=== PATIENT | female | born 1970 | race Caucasian/White ===

== ENCOUNTER → 2021-04-11 16:08 | Outpatient (BNVA) | payer OTHER, SELFPAY | PROVIDERS: Family Provider Physician Assistant Medical; PCP Nurse Practitioner Family; Visit Provider Emergency Medicine | DX: Z20.822 Contact with and (suspected) exposure to COVID-19 (principal) | CPT/HCPCS: 87635 ==

== ENCOUNTER 2021-04-21 20:08 | Emergency (ER) | payer BC, SELFPAY ==
--- NOTE | 2021-04-21 20:27 | XRR_ITS ---
PROCEDURE INFORMATION: Exam: XR Chest Exam date and time: 04/21/2021 8:27 PM Age: 51 years old Clinical indication: Cough and fever and shortness of breath; Additional info: Fever, cough, covid TECHNIQUE: Imaging protocol: XR of the chest. Views: 1 view. COMPARISON: No relevant prior studies available. FINDINGS: Lungs: Scattered, peripheral ground-glass opacities which are are frequently seen in COVID-19. Pleural spaces: Unremarkable. No pleural effusion. No pneumothorax. Heart/Mediastinum: Unremarkable. No cardiomegaly. Bones/joints: Unremarkable. XR/XR chest 1V portable [id number] IMPRESSION: Scattered, peripheral ground-glass opacities which are are frequently seen in COVID-19.
[2021-04-21 20:29] VITALS: BP 100/71; PULSE 72; RESP 20; TEMP 37.5; O2SAT 92; BMI 31.3
--- NOTE | 2021-04-21 22:46 | W.ED.SOB ---
HPI - SOB/Dyspnea General: Chief Complaint: Shortness of Breath/Dyspnea Stated Complaint: COVID + PNEUMONIA Time Seen by Provider: 04/21/21 22:46 History of Present Illness: HPI Narrative: 51-year-old female comes in today for persistent shortness of breath. Patient has been ill for the last 12 days. On the patient was diagnosed with COVID-19. Patient was seen last Wednesday at [facility] in [place] and was diagnosed with pneumonia secondary to Covid and was released to home. Patient was then seen today with persistent symptoms and recommended to follow-up with primary care. Patient came to our emergency room due to her persistent symptoms and no improvement after receiving fluids at the other emergency department. Patient does have a history of hypertension, asthma, and postmenopausal syndrome. Patient appears in no acute distress. Patient does appear unwell but not toxic. Patient's oxygen saturation was 86% on room air. Review of Systems General: Reports: 10 or more systems reviewed and unremarkable except in HPI and below Resp: Reports: dyspnea [facility] PFSH: Social History (Updated 04/11/21 @ 15:42 by Sissy Solorio LPN) Smoking and tobacco status: never smoked Alcohol intake: never Physical Exam Const: COMMON NORMALS: no acute distress and patient oriented x3 GENERAL APPEARANCE: cooperative HENMT: COMMON NORMALS: normocephalic and Normal external nose present HEAD & SCALP: normal to inspection and normocephalic NOSE: Normal external nose present MOUTH: Normal oral and palatal mucosa present Eye: GENERAL EYE: appearance normal, both eyes and all related structures Neck/C-Spine: COMMON NORMALS: full ROM Chest: COMMONS NORMALS: normal inspection of the chest Resp: COMMON NORMALS: normal respiratory effort EFFORT & INSPECTION: Yes able to speak in complete sentences AUSCULTATION: diminished lung sounds Cardio: COMMON NORMALS: regular rate and regular rhythm RATE: regular rate RHYTHM: regular rhythm GI: COMMON NORMALS: non-tender Back/Pelvis: COMMON NORMALS: thoracic and lumbar spine normal to inspection Extremity: COMMON NORMALS: normal to inspection Neuro: COMMON NORMALS: patient oriented x3 and moves all extremities Psych: COMMON NORMALS: mental status grossly normal and cooperative Skin: COMMON NORMALS: no rashes or lesions noted GENERAL SKIN EXAM: no rashes or lesions noted Course Vital Signs: Vital signs: Vital Signs Temperature 99.5 F 04/21/21 20:29 Pulse Rate 85 04/22/21 00:54 Respiratory Rate 24 H 04/22/21 00:54 Blood Pressure 107/50 04/22/21 00:54 Pulse Oximetry 90 04/22/21 00:54 MDM - SOB/Dyspnea MDM Narrative: Medical decision making narrative: Patient comes in tonight for complaints of feeling poorly and having shortness of breath. Patient found out she was Covid +10 days ago on the but was ill about 2 days prior to that. Patient has been seen at the [facility] emergency room twice and was diagnosed with pneumonia on Wednesday and then today she was recommended to follow-up with her primary care. Patient comes into the emergency room tonight for persistent symptoms and difficulty with breathing. Patient's O2 sat on my evaluation was 86% on room air. Patient was placed on oxygen at 3 L per nasal cannula and started ranging between 90 and 94%. Differential diagnosis includes respiratory failure, Covid related pneumonia, anxiety. Laboratory values were unremarkable except for a CRP of 127, fibrinogen 565, and a D-dimer 0.6. Patient did on her ABGs note a 53 PO2. Reviewed exam with Dr. White and he recommended patient be placed on oxygen and continue to monitor at home. I reviewed this with patient who was agreeable. Patient was given dexamethasone to help with inflammation and respiratory difficulty. Patient will be continued on oxygen at 3 L per nasal cannula at home. Recommended patient continue to monitor pulse oxygen and return as needed for worsening symptoms. Lab Data: Labs: Lab Results 04/21/21 04/21/21 04/21/21 Range/Units 11:28 23:11 23:11 WBC Cancelled Corrected WBC Cancelled RBC Cancelled Hgb Cancelled Hct Cancelled MCV Cancelled MCH Cancelled MCHC Cancelled RDW Cancelled Plt Count Cancelled MPV Cancelled Gran % Cancelled Neut % (Auto) Cancelled Lymph % (Auto) Cancelled Davison % (Auto) Cancelled Eos % (Auto) Cancelled Baso % (Auto) Cancelled Neut # (Auto) Cancelled Lymph # (Auto) Cancelled Davison # (Auto) Cancelled Eos # (Auto) Cancelled Baso # (Auto) Cancelled Absolute Gran (aut o) Cancelled Nucleated RBC % (a uto) Cancelled Nucleated RBCs # Cancelled PT (12.1-14.9) SECO NDS INR (0.8-1.2) APTT (23.9-36.7) SECO NDS Fibrinogen (174-498) mg/dL D-Dimer (0-0.59) ug/mIFE U Specimen Type Arterial Sample Site Brachial, left ABG pH 7.50 H (7.35-7.45) ABG pCO2 30.2 L (35-45) mmHg ABG pO2 53.4 L (80.0-100.0) mmH g ABG HCO3 23.4 (22-26) mmol/L ABG Base Excess 0.9 (-2.0-2.0) mmol/ L Maxime Test Pos Hematocrit 40.0 (37-47) % O2 Delivery Device Nc O2 Liters/Min 3.5 % FiO2 34.0 % Porcelain Enamel Installer ID Monro Sodium 138 (136-145) mmol/L Potassium 3.9 (3.5-5.1) mmol/L Chloride 101 (98-107) mmol/L Carbon Dioxide 22 (22-29) mmol/L Anion Gap 18.9 (5-19) BUN 12 (6-20) mg/dL Creatinine 0.7 (0.5-0.9) mg/dL GFR Calculation 88.2 L (90-130) mL/min Glucose 100 (65-115) mg/dL Calculated Osmolal ity 286 (285-295) mOsm/k g Lactic Acid (0.5-2.2) mmol/L Calcium 8.2 L (8.5-10.5) mg/dL Total Bilirubin 0.7 (0.15-1.2) mg/dL AST 20 (0-32) U/L ALT 14 (0-33) U/L Alkaline Phosphata se 98 (35-105) IU/L Creatine Kinase 136 (26-192) U/L Troponin T Gen 5 n g/L (0-10) ng/L C-Reactive Protein 127.3 H (0.0-4.9) mg/L NT-Pro-B Natriuret Pep 64 (0-125) pg/mL Total Protein 6.4 L (6.6-8.7) g/dL Albumin 3.7 (3.5-5.2) g/dL Globulin 2.7 (1.3-4.6) g/dL Procalcitonin 0.06 (0-0.5) ng/mL 04/21/21 04/21/21 04/21/21 Range/Units 23:11 23:11 23:55 WBC Corrected WBC RBC Hgb Hct MCV MCH MCHC RDW Plt Count MPV Gran % Neut % (Auto) Lymph % (Auto) Davison % (Auto) Eos % (Auto) Baso % (Auto) Neut # (Auto) Lymph # (Auto) Davison # (Auto) Eos # (Auto) Baso # (Auto) Absolute Gran (aut o) Nucleated RBC % (a uto) Nucleated RBCs # PT 14.20 (12.1-14.9) SECO NDS INR 1.06 (0.8-1.2) APTT 28.1 (23.9-36.7) SECO NDS Fibrinogen 565 H (174-498) mg/dL D-Dimer 0.60 H (0-0.59) ug/mIFE U Specimen Type Sample Site ABG pH (7.35-7.45) ABG pCO2 (35-45) mmHg ABG pO2 (80.0-100.0) mmH g ABG HCO3 (22-26) mmol/L ABG Base Excess (-2.0-2.0) mmol/ L Maxime Test Hematocrit (37-47) % O2 Delivery Device O2 Liters/Min % FiO2 % Porcelain Enamel Installer ID Sodium (136-145) mmol/L Potassium (3.5-5.1) mmol/L Chloride (98-107) mmol/L Carbon Dioxide (22-29) mmol/L Anion Gap (5-19) BUN (6-20) mg/dL Creatinine (0.5-0.9) mg/dL GFR Calculation (90-130) mL/min Glucose (65-115) mg/dL Calculated Osmolal ity (285-295) mOsm/k g Lactic Acid 1.4 (0.5-2.2) mmol/L Calcium (8.5-10.5) mg/dL Total Bilirubin (0.15-1.2) mg/dL AST (0-32) U/L ALT (0-33) U/L Alkaline Phosphata se (35-105) IU/L Creatine Kinase (26-192) U/L Troponin T Gen 5 n g/L 7 (0-10) ng/L C-Reactive Protein (0.0-4.9) mg/L NT-Pro-B Natriuret Pep (0-125) pg/mL Total Protein (6.6-8.7) g/dL Albumin (3.5-5.2) g/dL Globulin (1.3-4.6) g/dL Procalcitonin (0-0.5) ng/mL 04/21/21 Range/Units 23:55 WBC 5.3 Corrected WBC RBC 4.17 Hgb 12.1 Hct 38.1 MCV 91.4 MCH 29.0 MCHC 31.8 RDW 13.3 Plt Count 174 MPV 11.5 H Gran % Neut % (Auto) 62.6 Lymph % (Auto) 26.3 Davison % (Auto) 10.3 Eos % (Auto) 0.4 Baso % (Auto) 0.2 Neut # (Auto) 3.29 Lymph # (Auto) 1.4 Davison # (Auto) 0.5 Eos # (Auto) 0.0 Baso # (Auto) 0.0 Absolute Gran (aut o) Nucleated RBC % (a uto) 0 Nucleated RBCs # 0.0 PT (12.1-14.9) SECO NDS INR (0.8-1.2) APTT (23.9-36.7) SECO NDS Fibrinogen (174-498) mg/dL D-Dimer (0-0.59) ug/mIFE U Specimen Type Sample Site ABG pH (7.35-7.45) ABG pCO2 (35-45) mmHg ABG pO2 (80.0-100.0) mmH g ABG HCO3 (22-26) mmol/L ABG Base Excess (-2.0-2.0) mmol/ L Maxime Test Hematocrit (37-47) % O2 Delivery Device O2 Liters/Min % FiO2 % Porcelain Enamel Installer ID Sodium (136-145) mmol/L Potassium (3.5-5.1) mmol/L Chloride (98-107) mmol/L Carbon Dioxide (22-29) mmol/L Anion Gap (5-19) BUN (6-20) mg/dL Creatinine (0.5-0.9) mg/dL GFR Calculation (90-130) mL/min Glucose (65-115) mg/dL Calculated Osmolal ity (285-295) mOsm/k g Lactic Acid (0.5-2.2) mmol/L Calcium (8.5-10.5) mg/dL Total Bilirubin (0.15-1.2) mg/dL AST (0-32) U/L ALT (0-33) U/L Alkaline Phosphata se (35-105) IU/L Creatine Kinase (26-192) U/L Troponin T Gen 5 n g/L (0-10) ng/L C-Reactive Protein (0.0-4.9) mg/L NT-Pro-B Natriuret Pep (0-125) pg/mL Total Protein (6.6-8.7) g/dL Albumin (3.5-5.2) g/dL Globulin (1.3-4.6) g/dL Procalcitonin (0-0.5) ng/mL Discharge Plan Discharge Patient Disposition: Home Clinical Impression: Pneumonia due to 2019-nCoV Condition: Stable Prescriptions: New dexamethasone 6 mg tablet 6 mg PO BID Qty: 10 RF: 0 No Action lisinopril 2.5 mg tablet 2.5 mg PO DAILY RF: 0 montelukast [Singulair] 10 mg tablet 10 mg PO DAILY RF: 0 Premarin 0.9 mg tablet 0.9 mg PO DAILY RF: 0 atenolol 25 mg tablet 25 mg PO DAILY RF: 0 Discharge Orders: Discharge ED (Routine); Ordered 04/22/21 Ordered By: Harjinder Menard Other Ambulatory Orders: DME: Oxygen (Order) Location: None Selected Ordered By: Harjinder Menard Referrals: Brittany Dee FNP [Primary Care Provider] - Discharge Diet: Usual diet Discharge Activity: Increase activity as tolerated Patient Instructions: Viral Pneumonia (ED), Opioid Safety Activity Restrictions/Additional Instructions: Use home oxygen 3 L per nasal cannula. Use albuterol 2 puffs every 4 hours as needed for shortness of breath or cough. You must use the albuterol at least 4 times a day. Take the steroid dexamethasone 6 mg twice a day for the next 5 to 7 days. Make sure to stay well-hydrated. Monitor oxygen level at home. Oxygen level drops below 90% and does not recover after moving around taking a deep breath or coughing and clearing air gomez then you need to be reevaluated. Coding Level of Care Code ED Dag Coater for Andrew Fwd Exam Comprehensive
[2021-04-21 23:15] VITALS: BP 112/65; PULSE 79; RESP 18; O2SAT 96
[2021-04-21] MEDS: albuterol 8 gm MDI 2 PUFF INHALATION (23:30)
[2021-04-21] MEDS: sodium chloride 0.9% 500 ML 999 ML IV (23:36)
[2021-04-21] MEDS: dexamethasone 4 mg/mL INJ 10 MG IVP (23:37)
[2021-04-21 23:41] LABS: Lactic Sepsis W/Reflex 1.4 mmol/L (0.5-2.2)
[2021-04-21 23:42] LABS: ABG PCO2 30.2 mmHg (35-45); Base Excess ABG 0.9 mmol/L (-2.0-2.0); Blood Gas Allen Test Pos; Blood Gas LPM 3.5 %; Blood Gas Operator Identificat MONRO; Blood Gas Sample Site Brachial, left; Blood Gas Sample Type Arterial; HCO3 ABG 23.4 mmol/L (22-26); Oxygen Device NC; PO2 ABG 53.4 mmHg (80.0-100.0)
[2021-04-21 23:47] LABS: Troponin T (5th) Once 7 ng/L (0-10)
[2021-04-21 23:53] VITALS: PULSE 76; RESP 26; O2SAT 92
[2021-04-21 23:54] LABS: NT Pro B Type Natriuretic Pept 64 pg/mL (0-125); Procalcitonin 0.06 ng/mL (0-0.5)
[2021-04-22 00:05] LABS: Alanine Aminotransferase 14 U/L (0-33); Albumin Level 3.7 g/dL (3.5-5.2); Alkaline Phosphatase 98 IU/L (35-105); Anion Gap 18.9 (5-19); Aspartate Amino Transferase 20 U/L (0-32); Blood Urea Nitrogen 12 mg/dL (6-20); C Reactive Protein 127.3 mg/L (0.0-4.9); Calcium 8.2 mg/dL (8.5-10.5); Carbon Dioxide 22 mmol/L (22-29); Chloride 101 mmol/L (98-107); Creatine Phosphokinase 136 U/L (26-192); Globulin 2.7 g/dL (1.3-4.6); Glomerular Filtration Rate 88.2 mL/min (90-130); Glucose 100 mg/dL (65-115); Osmolality Calculated 286 mOsm/kg (285-295); Potassium 3.9 mmol/L (3.5-5.1); Sodium 138 mmol/L (136-145); Total Bilirubin 0.7 mg/dL (0.15-1.2); Total Protein 6.4 g/dL (6.6-8.7)
[2021-04-22 00:31] LABS: INR 1.06 (0.8-1.2); Partial Thromboplastin Time 28.1 SECONDS (23.9-36.7)
[2021-04-22 00:32] LABS: Fibrinogen 565 mg/dL (174-498)
[2021-04-22 00:44] LABS: Basophils % 0.2 %; Eosinophils % 0.4 %; Hematocrit 38.1 % (37.0-47.0); Hemoglobin 12.1 g/dL (11.5-15.3); Lymphocytes # 1.4 10^3/uL (0.8-4.8); Lymphocytes % 26.3 %; Mean Corpuscular HGB Conc 31.8 g/dL (30.0-36.0); Mean Corpuscular Volume 91.4 fL (81-99); Mean Platelet Volume 11.5 fL (7.4-10.4); Monocytes # 0.5 10^3/uL (0.2-0.9); Monocytes % 10.3 %; Neutrophils # 3.29 10^3/uL (1.8-7.7); Neutrophils % 62.6 %; Nucleated Red Blood Cells % 0 %; Platelet Count 174 10^3/cmm (130-400); Red Blood Count 4.17 10^6/uL (4.1-5.3); Red Cell Distribution Width 13.3 % (12.1-15.1); White Blood Count 5.3 10^3/uL (4.0-10.0)
[2021-04-22 00:45] LABS: Slide Review Slide Review Perform
[2021-04-22 00:54] VITALS: BP 107/50; PULSE 85; RESP 24; O2SAT 90
[2021-04-22 01:53] VITALS: BP 103/68; PULSE 85; RESP 22; O2SAT 91
== END 2021-04-22 02:24 | disposition home or self-care (01) ==
PROVIDERS: Emergency Provider Nurse Practitioner Family; PCP Nurse Practitioner Family
DX: U07.1 COVID-19 (principal); J12.82 Pneumonia due to coronavirus disease 2019; J45.909 Unspecified asthma, uncomplicated; I10 Essential (primary) hypertension
CPT/HCPCS: 36600; 71045; 80053; 82550; 82803; 83605; 83880; 84145; 84484; 85025; 85378; 85384; 85610; 85730; 86140; 94640; 96374; 99284; J1100; J3535; J7040